=== PATIENT | male | born 1955 | race Caucasian/White ===

== ENCOUNTER 2018-07-29 06:04 | Emergency (ER) | payer OTHER ==
[~2018-07-29] VITALS: Ht 185.4 cm; Wt 112.5 kg
[2018-07-29 06:10] VITALS: BP 162/86
--- NOTE | 2018-07-29 06:22 | NUR ---
"I HAVE A REALLY BAD SINUS INFECTION"x2 WEEKS. C/O COUGH AND INTERMITTENT FEVER AND NAUSEA.
[2018-07-29] MEDS ORDERED: DEXAMETHASONE 4 MG/ML, 1ML PO ONE (06:30)
[2018-07-29] MEDS ORDERED: DEXAMETHASONE 4 MG/ML, 5ML ONE (06:39)
== END 2018-07-29 07:26 | disposition home or self-care (01) ==
LOC: ED 06:49
DX: J01.00 Acute maxillary sinusitis, unspecified (principal); F17.210 Nicotine dependence, cigarettes, uncomplicated
CPT/HCPCS: 71046; 99283; J1100